=== PATIENT | male | born 1975 | race Caucasian/White ===

== ENCOUNTER 2025-01-03 19:59 | Emergency (ER) | payer MEDICAID, SELFPAY ==
[2025-01-03 20:07] VITALS: BP 144/99
[2025-01-03 20:41] LABS: % Basophils 0.8 % (0-2); % Eosinophils 1.7 % (0-6); % Immature Granulocytes 0.3 % (0-0.5); % Lymphocytes 23.3 % (20.5-51.1); % Monocytes 9.9 % (1.7-9.3); Absolute Basophils 0.1 10^3/uL (0-0.2); Absolute Eosinophils 0.1 10^3/uL (0-0.7); Absolute Lymphocytes 1.5 10^3/uL (1.2-3.4); Absolute Monocytes 0.6 10^3/uL (0.1-0.6); Absolute Neutrophils 4.1 10^3/uL (1.4-6.5); Hematocrit 49.9 % (39.0-52.0); Hemoglobin 17.9 g/dL (13.0-18.0); Mean Corp Hgb Conc. 35.9 g/dL (33.0-37.0); Mean Corpuscular Hgb 32.1 pg (27.0-31.0); Mean Corpuscular Volume 89.4 fL (80.0-94.0); Mean Platelet Volume 9.3 fL (7.4-10.4); Nucleated Red Blood Cells % 0 % (-); Platelet Count 215 10^3/uL (130-400); Red Blood Cell Count 5.58 10^6/uL (4.70-6.10); Red Cell Dist. Width 12.8 % (11.5-14.5); White Blood Cell Count 6.4 10^3/uL (4.8-10.8)
[2025-01-03 20:52] LABS: ALT (SGPT) 103 U/L (0-50); AST (SGOT) 125 U/L (17-59); Albumin 4.9 g/dl (3.5-5.0); Alkaline Phosphatase 104 U/L (38-126); Blood Urea Nitrogen 15 mg/dl (9-20); Calcium 10.1 mg/dl (8.4-10.2); Carbon Dioxide 26 mmol/L (22-30); Chloride 100 mmol/L (98-107); Glucose 95 mg/dl (70-99); Potassium 4.7 mmol/L (3.5-5.1); Sodium 140 mmol/L (135-145); Total Bilirubin 1.8 mg/dl (0.2-1.3); Total Protein 8.9 g/dl (6.3-8.2); eGFR > 60.00
--- NOTE | 2025-01-03 21:59 | ED.GENMED ---
History of Present Illness
General
Chief Complaint: Abdominal Pain
Source: patient
Exam Limitations: none
Time Seen by Provider: 01/03/25 21:42
History of Present Illness
History of Present Illness:
49yoM with no significant past medical history presenting for evaluation of abdominal pain. Patient reports pain in his epigastric region for the past 2 to 3 days. Pain is a 3-4/10 in severity constantly and becomes severe about an hour after
eating or drinking anything. Pain is described as burning and radiates to the chest after eating. He is vomiting intermittently due to his pain. He also reports feeling bloated and has a fullness in his upper abdomen. He feels very dehydrated
because he has not been eating or drinking much due to his symptoms. He has not had a bowel movement in the past few days. He spoke with his friend who is a physician and he was told he may have a stomach ulcer. He denies any fevers, weight loss,
difficulty urinating. No previous abdominal surgeries.
Past History
Past History
ED Past Medical History: None
ED Past Surgical History: Other (History of wrist surgery)
Social History
Personal:
Living: with family
Employment: Employed
Phy Exam
General Physical Exam
General Presentation: well appearing and no apparent distress
General age: appears stated age
General Skin: warm and dry
General Habitus: normal
General Mental: alert
ENT Exam
ENT Exam: normocephalic
Cardiovascular Exam
Cardiovascular Exam: regular rate/rhythm and no murmur
Pulmonary Exam
Pulmonary Exam: lungs clear, no respiratory distress, no rales, no crackles, no rhonchi and no wheezing
Gastrointestinal Exam
Gastrointestinal Exam: soft, non distended and other (+Epigastric tenderness. No RUQ tenderness or negative Monroy's sign. No rebound or guarding. )
Neurological Exam
Neurological Exam: alert
[place] Coma Scale
Eye Opening: Spontaneous
Verbal Response: Oriented
Motor Response: Obeys Commands
GCS Total Score: 15
Skin Exam
Skin Exam: normal color and warm/dry
Psychiatric Exam
Psychiatric Exam: normal mood/affect
Sepsis
Sepsis Screening
Sepsis Assessment: Sepsis Ruled Out
Sepsis Screen
Sepsis Screen: Sepsis Ruled Out
Date: 01/04/25
Time: 01:06
Course
Orders/Labs/Results
Orders:
Orders
01/03/25 20:21
Complete Blood Count/With Diff Urgent
Comprehensive Metabolic Panel Urgent
Lipase Urgent
Comment: ADDED
01/03/25 21:57
Electrocardiogram (*1) Urgent
Reason for Study: Abdominal Pain
CT Abd/pelvis W Iv Cont Urgent
Comment:
Reason For Exam: Epigastric pain
EKG- Treatment ONCE
0.9% Sodium Chloride 1000 ml [Nss] 1,000 ml IV BOLUS
Famotidine [Pepcid] 20 mg IV NOW STA
Pantoprazole [Protonix IV] 40 mg IV NOW STA
Sucralfate Suspension [Carafate Suspension] 1 gm PO NOW STA
01/03/25 22:25
Troponin I Urgent
01/04/25 00:06
Add On- LAB Urgent
Tests Added?: lipase
01/04/25 01:00
Lidocaine Visc/Maalox/Benadryl [Magic or Miracle Mouthwash] 10 ml PO ONCE ONE
Abnormal Lab Results
01/03/25
20:21
MCH 32.1 H pg
(27.0-31.0)
Monocytes % 9.9 H %
(1.7-9.3)
Total Bilirubin 1.8 H mg/dl
(0.2-1.3)
AST 125 H U/L
(17-59)
ALT 103 H U/L
(0-50)
Total Protein 8.9 H g/dl
(6.3-8.2)
01/03/25 20:21
01/03/25 20:21
Vital Signs
Initial and Last Documented VS:
Initial Vital Signs
Pulse Resp BP Pulse Ox
109 18 144/99 97
01/03/25 20:07 01/03/25 20:07 01/03/25 20:07 01/03/25 20:07
Last Documented Vital Signs
Temp Pulse Resp BP Pulse Ox
98.0 F 103 10 129/99 97
01/03/25 20:11 01/04/25 00:15 01/04/25 00:15 01/04/25 00:09 01/04/25 00:15
MDM/Problems Addressed
Differential Diagnosis Includes:
49yoM here with epigastric pain x 2-3 days. Worse after eating. Described as a burning pain that radiates to the chest. He is well appearing in no distress. No signs of peritonitis on abdominal exam. Monroy's sign is negative. Differential diagnosis
includes but is not limited to: gastritis, PUD, esophagitis, biliary colic, pancreatitis
Initial ED plan: Labs obtained in triage. White count and renal function normal. Transaminitis noted with AST 125, ALT 103, and total bilirubin 1.8. Patient does report drinking alcohol excessively recently with last drink several days ago. Will
check lipase, troponin, EKG, and CT abdomen. IV Protonix, Pepcid, Carafate, and fluid bolus ordered.
*EKG
Interpreted by ED Provider?: Yes
EKG Intrepretation Date: 01/04/25
Heart Rate: 71
Rate: normal
Rhythm: sinus
[place]: left axis deviation
Interval: normal interval
QRS Pattern: normal QRS
Ischemia: T-wave inversion (V2-V3)
*Critical Care Note
Total Time (30-74mins, 75-104mins- exclusive of procedures): Not Applicable
Update Note
Update Note:
Lipase normal. EKG shows normal sinus rhythm with T wave inversions in V2-V3. No ST changes and troponin within normal limits. Preliminary [facility] report for CT scan reveals mild distal esophageal wall thickening. There is also a small
hiatal hernia. No other acute abnormalities noted. Specifically, the gallbladder appears normal. Patient feeling improved after medications. No indication for hospitalization at this time. Prescriptions provided for Protonix and Carafate. He
was advised to follow-up with a PCP and gastroenterology. ED return precautions discussed. Patient in agreement with plan and was discharged in stable condition.
ED Attending Note
-
Portions of this chart may have been created with voice recognition software.� Occasional wrong word or��sound alike� substitutions may have occurred due to the inherent limitations of voice recognition software.
Discharge Plan
Departure
Patient with high blood pressure during this ER visit?: Yes
Discharge Problem:
Esophagitis
Instructions: Esophagitis
Prescriptions:
New
pantoprazole [Protonix] 40 mg tablet,delayed release (DR/EC)
40 mg PO DAILY Qty: 30 0RF
sucralfate [Carafate] 100 mg/mL suspension
10 ml PO ACHS Qty: 400 0RF
No Action
No Current Medications
ibuprofen 800 MG tablet
800 mg PO Q6HPRN PRN (Reason: for moderate pain) Qty: 30 0RF
Referrals:
[facility] [Provider Group]
NONE,* [Family Provider] -
Megan Longoria MD [Active] -
Activity Restrictions/Additional Instructions:
Take Protonix and Carafate as prescribed. You may also take famotidine (Pepcid) 20 mg twice a day as needed.
Please call tomorrow to schedule a follow-up with a family doctor and postal carrier. Return to the ER with any new or worsening symptoms.
Interventions
Interventions:
*Risk Screen - Suicide Last Done: 01/03/25 20:11
*General Assessment Last Done: 01/03/25 20:11
*Neglect/Abuse Screening Last Done: 01/03/25 20:11
*ED- Fall Risk Assessment Last Done: 01/03/25 22:13
*ED COVID-19 Vaccine History Last Done: 01/03/25 20:10
CA-Lvxvvy-Dscyqsbalv Assessment Last Done: 01/03/25 22:13
Discharge Date and Time
Print Language: LATVIAN
[2025-01-03] MEDS: NSS 1000 IV (22:26)
[2025-01-03] MEDS: CARAFATE SUSPENSION 1 GM PO (22:32)
[2025-01-03] MEDS: PEPCID 20 MG IV (22:33)
[2025-01-03] MEDS: PROTONIX IV 40 MG IV (22:37)
[2025-01-03 22:58] LABS: Troponin I < 0.012 ng/ml
[2025-01-03 23:26] VITALS: BP 126/96
[2025-01-04 00:09] VITALS: BP 129/99
[2025-01-04 00:10] VITALS: BMI 23.1
[2025-01-04] MEDS: MAGIC OR MIRACLE MOUTHWASH 10 ML PO (00:37)
[2025-01-04 00:59] LABS: Lipase 75 U/L (23-300)
== END 2025-01-04 01:35 | disposition home or self-care (01) ==
LOC: EMR 19:59
PROVIDERS: Physician Assistant; EMERGENCY PHYSICIAN Student in an Organized Health Care Education/Training Program
DX: K20.90 Esophagitis, unspecified without bleeding (principal); R14.0 Abdominal distension (gaseous); R11.10 Vomiting, unspecified; R03.0 Elevated blood-pressure reading, without diagnosis of hypertension; K44.9 Diaphragmatic hernia without obstruction or gangrene
CPT/HCPCS: 99284; 96375; 96361; 96374; 74177; 80053; 83690; 84484; 85025; 93005; Q9967